=== PATIENT | female | born 1955 | race Caucasian/White ===

== ENCOUNTER 2016-05-06 08:00 | Outpatient (CLI) | payer MEDICAID | END 2016-05-06 23:59 | disposition home or self-care (01) | DX: N20.0 Calculus of kidney (principal) ==

== ENCOUNTER 2016-05-20 10:08 | Outpatient (CLI) | payer MEDICAID | END 2016-05-20 10:09 | disposition home or self-care (01) | DX: N20.0 Calculus of kidney (principal); E27.9 Disorder of adrenal gland, unspecified ==

== ENCOUNTER 2016-05-23 09:05 | Outpatient (CLI) | payer MEDICAID | END 2016-05-23 09:06 | disposition home or self-care (01) | DX: N20.0 Calculus of kidney (principal) ==

== ENCOUNTER 2016-05-25 07:30 | Outpatient (CLI) | payer MEDICAID | END 2016-05-25 07:31 | disposition home or self-care (01) | DX: N20.0 Calculus of kidney (principal); E27.9 Disorder of adrenal gland, unspecified ==

== ENCOUNTER 2016-06-02 08:00 | Outpatient (CLI) | payer MEDICAID | END 2016-06-02 23:59 | disposition home or self-care (01) | DX: E27.9 Disorder of adrenal gland, unspecified (principal); N20.0 Calculus of kidney ==

== ENCOUNTER 2016-06-04 07:54 | Outpatient (CLI) | payer MEDICAID ==
[2016-06-04] MEDS ORDERED: IOPAMIDOL-300 100 ML VIAL IVP ONE (09:29)
== END 2016-06-04 07:55 | disposition home or self-care (01) ==
DX: N20.0 Calculus of kidney (principal); E27.8 Other specified disorders of adrenal gland
CPT/HCPCS: 36415; 74170; 82565; Q9967

== ENCOUNTER 2023-06-07 11:27 | Outpatient (CLI) | payer MEDICARE, OTHER | END 2023-06-07 23:59 | disposition critical access hospital (66) | LOC: EMS 11:27 | DX: M25.512 Pain in left shoulder (principal); S49.92XA Unspecified injury of left shoulder and upper arm, initial encounter; W01.198A Fall on same level from slipping, tripping and stumbling with subsequent striking against other object, initial encounter; Y92.015 Private garage of single-family (private) house as the place of occurrence of the external cause | CPT/HCPCS: A0425; A0427 ==

== ENCOUNTER 2023-06-07 12:12 | Emergency (ER) | payer MEDICARE, OTHER ==
--- NOTE | 2023-06-07 12:15 | ED Physician Documentation ---
PD HPI UPPER EXT INJURY - Stated complaint Stated Complaint: L SHOULDER INJ - History obtained from History obtained from: Patient, Family, EMS - Additonal information Additional information: This is a very healthy 67-year-old woman who presents by ambulance accompanied by her . She had a trip and fall over a tire in the garage and landed on the left shoulder where she has severe pain, and it continues to be severe despite the administration of [address] of f[address] on the way here. No other injuries. PD PAST MEDICAL HISTORY - Present Medications Home Medications: Ambulatory Orders Medication Instructions Recorded Confirmed HYDROcod/ACETAM 5/325 [[place] 5/325] 1 - 2 tab PO Q6H PRN #20 tablet 06/07/23 - Allergies Allergies/Adverse Reactions: Allergies Allergy/AdvReac Type Severity Reaction Status Date / Time No Known Drug Allergies Allergy Verified 06/07/23 12:16 PD ED PE NORMAL - Vitals Vital signs reviewed: Yes - General General: Alert and oriented X 3, Other (She does appear to be in significant pain.) - Neck Neck: Supple, no meningeal sign, No bony TTP - Extremities Extremities: Other (She is tender over the glenohumeral joint on the left. Unclear if there is a deformity initially. Normal neurovascular function in the left hand.) - Neuro Neuro: Alert and oriented X 3, Normal speech - Psych Psych: Normal mood, Normal affect Results - Vitals Vitals: Vital Signs - 24 hr 06/07/23 06/07/23 06/07/23 12:30 12:52 12:55 Temperature 37.0 C 36.9 C Heart Rate 83 77 84 Respiratory 30 H 22 19 Rate Blood Pressure 137/117 H 164/51 H 164/51 H O2 Saturation 100 96 99 If not protocol : Oxygen Flow, liters/minute 06/07/23 06/07/23 06/07/23 13:03 13:08 13:16 Temperature Heart Rate 70 75 78 Respiratory 8 L 15 12 Rate Blood Pressure 137/107 H 164/112 H O2 Saturation 93 95 99 If not protocol 9 12 2 : Oxygen Flow, liters/minute 06/07/23 06/07/23 06/07/23 13:32 13:36 13:39 Temperature 36.1 C L Heart Rate 69 75 Respiratory 12 12 Rate Blood Pressure 164/112 H 134/75 H O2 Saturation 99 94 If not protocol 2 : Oxygen Flow, liters/minute Oxygen O2 Source Room air - Rads (name of study) L shoulder Relevant Findings:: Final report received, EMP independent interpretation of test Procedures - Reduction Body part reduced: Left, Shoulder Shoulder reduction technique: Traction - counter tract - Procedural sedation Sedation prep: Informed consent, Time out completed, PE performed, ASA 1 - healthy Sedation Medications: propofol (60mg IVP x 3 then 100mg x1 = total 280mg) Mallampati classification: I Patient status during sedation: Responds to tactile Time in sedation (Minutes): 12 PD Medical Decision Making - ED course ED course: 67-year-old woman presents with isolated left shoulder dislocation with severe pain. On my first attempt at reduction failed and she was quickly resedated and reduced with success. There is an associated Bankart fracture. Departure - Departure Disposition: 01 Home, Self Care Clinical Impression: Shoulder dislocation Qualifiers: Encounter type: initial encounter Laterality: left Qualified Code(s): S43.005A - Unspecified dislocation of left shoulder joint, initial encounter Condition: Good Record reviewed to determine appropriate education?: Yes Instructions: ED Dislocation Shoulder Redu Follow-Up: Orthopedic Care [Provider Group] Prescriptions: HYDROcod/ACETAM 5/325 [[place] 5/325] 1 - 2 tab PO Q6H PRN #20 tablet PRN Reason: Pain Comments: There is a small fracture associated with the shoulder dislocation but the shoulder is now reduced. You should follow-up with our orthopedic clinic in about a week. Call them tomorrow for an appointment. I sent your prescription electronically to the [facility] in [place]. I am prescribing a short course of narcotic pain medication for you. These are potentially dangerous and addictive medications that should be used carefully. These medications may constipate you. Take an yilv-qgi-rewyqmx stool softener (docusate) twice daily with plenty of water while taking these medications. If you go 24 hours without a bowel movement, take euxm-pmv-lcfkulb miralax, per package instructions. Do not drink or drive while taking these medications. If you received narcotic or sedating medications while in the emergency department, do not drive for 24 hours. Store this medication in a safe, secure place and out of reach of children. It is a violation of federal law to give or sell this medication to another person or to use in a manner other than prescribed. The ED will not refill narcotic prescriptions, including prescriptions lost or stolen. To dispose of unwanted medications: 1. [facility] provides a drop box for medication in pill form only (no liquids) 8:00 am to 4:30 p.m. Thursday-Thursday in the lobby of the [facility], [address] Empty pills into ziplock bag before disposal. Call [phone] for information. 2.[employer] is a free service available to all [facility] residents. Go to [email or web address] Note that many narcotic pain relievers also contain Tylenol/acetaminophen. Please ensure that your total dose of acetaminophen from all sources does not exceed 3 g (3000 mg) per day.
[2023-06-07] MEDS ORDERED: HYDROmorphone 2 MG/ML VIAL ONE (12:17)
[2023-06-07] MEDS ORDERED: KETOROLAC 15 MG/ML VIAL ONE (12:17)
[2023-06-07] MEDS: KETOROLAC 15 MG/ML VIAL IVP STA (12:28)
[2023-06-07] MEDS: HYDROmorphone 1 MG/ML CARPUJECT IVP STA (12:29)
[2023-06-07] MEDS: ONDANSETRON 4 MG/2 ML VIAL IVP STA (12:29)
[2023-06-07] MEDS: PROPOFOL 200 MG/20 ML VIAL IVP STA ×2 (12:59→13:19)
--- NOTE | 2023-06-07 13:02 | XRAY Report ---
PROCEDURE: Shoulder 2+V RT INDICATIONS: shoulder inj TECHNIQUE: 4 views of the shoulder were acquired. COMPARISON: None. FINDINGS: Bones: Anterior shoulder dislocation seen. There is a bony Bankart fracture seen. Within acute fragm ent measuring 1 cm. There is a likely also faxed deformity. Age-appropriate degenerative changes are seen. The visualized ribs appear intact. Soft tissues: No suspicious soft tissue calcifications. The visualized lungs are within normal limi ts. IMPRESSION: Anterior shoulder dislocation, with a bony Bankart fracture and a likely Hill-Sachs deformity also pr esent. Following relocation, please consider a shoulder CT for further evaluation. Reviewed by: Ferny Clements MD on 06/07/2023 12:01 PM PATITO Approved by: Ferny Clements MD on 06/07/2023 12:01 PM PATITO Station ID: [id number]
--- NOTE | 2023-06-07 13:49 | XRAY Report ---
PROCEDURE: Shoulder 2+V LT INDICATIONS: post reduction TECHNIQUE: 4 views of the shoulder were acquired. COMPARISON: None. FINDINGS: Bones: First radiographs demonstrate anterior dislocation of the glenohumeral joint. Follow-up radio graphs demonstrate reduction of the glenohumeral joint. No suspicious bony lesions. Visualized ribs appear intact. Soft tissues: No suspicious soft tissue calcifications. The visualized lungs are within normal limi ts. IMPRESSION: Left glenohumeral joint dislocation is reduced. No conspicuous fracture. Reviewed by: Neal Bhakta MD on 06/07/2023 1:48 PM PDT Approved by: Neal Bhakta MD on 06/07/2023 1:48 PM PDT Station ID: [id number]
[2023-06-07 14:56] VITALS: O2SAT 99
[2023-06-07 16:18] VITALS: BP 126/57
== END 2023-06-07 15:05 | disposition home or self-care (01) ==
LOC: ED 12:12
DX: S43.015A Anterior dislocation of left humerus, initial encounter (principal); W01.0XXA Fall on same level from slipping, tripping and stumbling without subsequent striking against object, initial encounter; Y92.89 Other specified places as the place of occurrence of the external cause
CPT/HCPCS: 23655; 73030; 96374; 96375; 99152; 99284; 99285; J1170